=== PATIENT | female | born 1955 | race Caucasian/White ===

== ENCOUNTER 2018-09-12 11:21 | Outpatient (CLI) | payer BC ==
--- NOTE | 2018-09-12 11:51 | RAD ---
TWO VIEWS CHEST: Date: 09-12-18 Provided Clinical History: Dyspnea. FINDINGS: Comparison 10-20-10. Cardiac and mediastinal silhouette is within normal limits. Lungs appear clear. N o pleural fluid or pneumothorax apparent. IMPRESSION: No evidence for an acute cardiopulmonary process. POS: [facility]
== END 2018-09-12 11:22 | disposition home or self-care (01) ==
LOC: RAD 11:21
PROVIDERS: ATTEND Internal Medicine Critical Care Medicine
DX: R06.00 Dyspnea, unspecified (principal)
CPT/HCPCS: 71046